=== PATIENT | female | born 1940 | race Caucasian/White ===

== ENCOUNTER 2018-02-13 20:23 | Emergency (ER) | payer OTHER, MEDICAID ==
[~2018-02-13] VITALS: Ht 165.1 cm; Wt 72.1 kg
[2018-02-13 20:25] VITALS: BP_SYST 142
[2018-02-13 21:03] LABS: BILIRUBIN,URINE NEGATIVE (NEGATIVE); BLOOD, URINE 2+ (NEGATIVE); CLARITY/URINE CLEAR (CLEAR); COLOR,URINE YELLOW (YELLOW); GLUCOSE,URINE NEGATIVE (NEGATIVE); KETONES,URINE NEGATIVE (NEGATIVE); LEUKOCYTE ESTERASE ,URINE 1+ (NEGATIVE); NITRITE, URINE NEGATIVE (NEGATIVE); PH,URINE 6.5 (5.0-8.0); PROTEIN URINE NEGATIVE (NEGATIVE); UROBILINOGEN,URINE 0.2 (0.2-1.0)
[2018-02-13 21:13] LABS: BASOPHILS % (AUTO) 0.3 % (0.0-2.0); EOSINOPHILS # (AUTO) 0.2 K/uL (0.0-0.4); EOSINOPHILS % (AUTO) 3.8 % (0.0-4.0); HEMATOCRIT 34.3 % (36-48); HEMOGLOBIN 12.1 g/dL (12.0-16.0); LYMPHOCYTES # (AUTO) 1.8 K/uL (1.0-5.5); LYMPHOCYTES % (AUTO) 32.1 % (20.5-51.5); MEAN CORPUSCULAR HEMOGLOBIN 33 pg (27-31); MEAN CORPUSCULAR HGB CONC 35 % (32-36); MEAN CORPUSCULAR VOLUME 93 fL (79.0-98.0); MONOCYTES # (AUTO) 0.6 K/uL (0.0-1.0); MONOCYTES % (AUTO) 11.4 % (1.7-9.3); NEUTROPHILS # (AUTO) 2.9 K/uL (1.8-7.7); NEUTROPHILS % (AUTO) 52.4 % (40.0-70.0); PLATELET COUNT (AUTO) 203 K/uL (130-430); RED BLOOD CELL COUNT(AUTO) 3.71 MIL/uL (4.2-6.2); RED CELL DISTRIBUTION WIDTH 12.4 % (9.0-15.0); WHITE BLOOD COUNT (AUTO) 5.5 K/uL (4.8-10.8)
[2018-02-13 21:15] LABS: BACTERIA,URINE FEW /HPF (None Seen); WBC,URINE 0-3 /HPF (0-3)
[2018-02-13 21:24] LABS: BARBITURATE, URINE NEGATIVE (NEG <=200); BENZODIAZEPINE, URINE NEGATIVE (NEG <=150); CANNABINOID, URINE NEGATIVE (NEG <=50); COCAINE, URINE NEGATIVE (NEG <=150); METHAMPHETAMINES SCREEN,URINE NEGATIVE (NEG <=500); OPIATE, URINE POSITIVE (NEG <=100); PHENCYCLIDINE SCREEN,URINE NEGATIVE (NEG <=25); UR TRICYCLIC ANTIDEPRESSANTS NEGATIVE (NEG <=300); URINE AMPHETAMINE NEGATIVE (NEG <=500); URINE METHADONE NEGATIVE (NEG <=200); URINE OXYCODONE SCREEN NEGATIVE (NEG <=100); URINE PROPOXYPHENE SCREEN NEGATIVE (NEG <=300)
[2018-02-13] MEDS ORDERED: NEU300 PO (21:29)
[2018-02-13] MEDS ORDERED: HYDR-4100 PO (21:29)
[2018-02-13 21:30] LABS: ANION GAP 8 (5-15); CALCIUM 9.2 mg/dL (8.4-11.0); CHLORIDE 103 mmol/L (98-107); GLUCOSE 106 mg/dL (70-99); POTASSIUM 3.8 mmol/L (3.5-5.1); SODIUM SERUM 137 mmol/L (136-145); UREA NITROGEN, BLOOD 20 mg/dL (8-21)
[2018-02-13 21:46] LABS: ALANINE AMINOTRANSFERASE 22 U/L (12-78); ALBUMIN 3.7 g/dL (3.4-4.8); ALCOHOL, BLOOD 3 mg/dL (<10); ASPARTATE AMINOTRANSFERASE 23 U/L (10-37); FREE T4 (FREE THYROXINE) 0.8 ng/dL (0.6-1.6); TOTAL BILIRUBIN 0.3 mg/dL (0.0-1.0)
[2018-02-13 22:04] LABS: PROTHROMBIN TIME 10.2 SECS (9.5-12.5)
[2018-02-13] MEDS ORDERED: ACETAMINOPHEN 325 MG TABLET PO ONE (23:00)
[2018-02-14] VITALS: BP_SYST 120
== END 2018-02-14 00:05 | disposition home or self-care (01) ==
LOC: SED 20:23
DX: R42 Dizziness and giddiness (principal); R03.0 Elevated blood-pressure reading, without diagnosis of hypertension; F41.9 Anxiety disorder, unspecified; M54.30 Sciatica, unspecified side; Z88.0 Allergy status to penicillin
CPT/HCPCS: 36415; 70450; 71045; 74018; 80053; 80307; 81000; 82140; 83605; 83880; 84439; 84484; 85025; 85610; 87040; 87086; 93005; 99285; G0482

== ENCOUNTER 2019-08-24 12:39 | Emergency (ER) | payer OTHER, MEDICAID ==
[~2019-08-24] VITALS: Ht 165.1 cm; Wt 74.8 kg
[~2019-08-24 12:39] MED LIST: HYDR-4100 PO; NEU300 PO
--- NOTE | 2019-08-24 13:10 | NUR ---
Patient to ER bed 3 to gown for evaluation. Side rails up. Assumed care.
--- NOTE | 2019-08-24 13:11 | NUR ---
Patient AAOx4 brought in by family c/o anxiety. Patient has allergy to penicillin. Patient denies any SOB or pain. Patient has thyroid disease. No signs or symptoms of acute distress noted.
--- NOTE | 2019-08-24 13:12 | NUR ---
BARRON Parker at bedside examining patient.
[2019-08-24 13:14] VITALS: BP_SYST 132
[2019-08-24] MEDS ORDERED: NACL 0.9% 1,000 ML IV ONE (13:15)
[2019-08-24] MEDS ORDERED: LORazepam 2 MG/ML VIAL IVP ONE (13:15)
[2019-08-24 13:37] LABS: BASOPHILS % (AUTO) 0.4 % (0.0-2.0); EOSINOPHILS # (AUTO) 0.1 K/uL (0.0-0.4); EOSINOPHILS % (AUTO) 1.3 % (0.0-4.0); HEMATOCRIT 36.2 % (36-48); HEMOGLOBIN 12.3 g/dL (12.0-16.0); LYMPHOCYTES # (AUTO) 1.4 K/uL (1.0-5.5); LYMPHOCYTES % (AUTO) 22.5 % (20.5-51.5); MEAN CORPUSCULAR HEMOGLOBIN 32 pg (27-31); MEAN CORPUSCULAR HGB CONC 34 % (32-36); MEAN CORPUSCULAR VOLUME 95 fL (79.0-98.0); MONOCYTES # (AUTO) 0.5 K/uL (0.0-1.0); NEUTROPHILS # (AUTO) 4.2 K/uL (1.8-7.7); NEUTROPHILS % (AUTO) 67.8 % (40.0-70.0); PLATELET COUNT (AUTO) 183 K/uL (130-430); RED BLOOD CELL COUNT(AUTO) 3.81 MIL/uL (4.2-6.2); RED CELL DISTRIBUTION WIDTH 13.5 % (9.0-15.0); WHITE BLOOD COUNT (AUTO) 6.2 K/uL (4.8-10.8)
[2019-08-24 13:52] LABS: ANION GAP 8 (5-15); CHLORIDE 106 mmol/L (98-107); CREATININE 0.73 mg/dL (0.55-1.30); GLUCOSE 194 mg/dL (70-99); POTASSIUM 3.6 mmol/L (3.5-5.1); SODIUM SERUM 140 mmol/L (136-145); UREA NITROGEN, BLOOD 18 mg/dL (8-21)
[2019-08-24 14:07] LABS: ALANINE AMINOTRANSFERASE 18 U/L (12-78); ALBUMIN 3.8 g/dL (3.4-4.8); ASPARTATE AMINOTRANSFERASE 20 U/L (10-37); FREE T4 (FREE THYROXINE) 0.9 ng/dl (0.8-1.5); THYROID STIMULATING HORMONE 2.55 uIu/mL (0.36-3.74); TOTAL BILIRUBIN 0.3 mg/dL (0.0-1.0)
--- NOTE | 2019-08-24 15:40 | NUR ---
Patient given written and verbal discharge instructions and verbalizes understanding. ER MD discussed with patient the results and treatment provided. Patient in stable condition. ID arm band removed. IV catheter removed intact and dressing applied, no active bleeding. Rx of Hydroxyzine Hydrochloride given. Patient educated on pain management and to follow up with PMD. Pain Scale 0/10. Opportunity for questions provided and answered. Medication side effect fact sheet provided.
[2019-08-24 15:44] VITALS: BP_SYST 130
== END 2019-08-24 15:43 | disposition home or self-care (01) ==
LOC: SED 12:39
DX: F41.9 Anxiety disorder, unspecified (principal); R73.9 Hyperglycemia, unspecified; R42 Dizziness and giddiness; Z88.0 Allergy status to penicillin; Z79.899 Other long term (current) drug therapy
CPT/HCPCS: 36415; 80053; 83036; 84439; 84443; 84484; 85025; 93005; 96361; 96374; 99284; J2060; J7030

== ENCOUNTER 2021-05-10 00:37 | Emergency (ER) | payer OTHER, MEDICAID ==
[~2021-05-10] VITALS: Ht 165.1 cm; Wt 68.0 kg
[~2021-05-10 00:37] MED LIST changes: +HYDR-3927 PO; -HYDR-4100 PO
[2021-05-10 00:56] VITALS: BP_SYST 102
[2021-05-10] MEDS ORDERED: DONE10TA44 PO (01:44)
[2021-05-10] MEDS ORDERED: SERT-436 PO (01:44)
[2021-05-10] MEDS ORDERED: BACL10TA PO (01:44)
[2021-05-10] MEDS ORDERED: SYN50 PO (01:44)
[2021-05-10] MEDS ORDERED: MEMA10TA PO (01:44)
[2021-05-10 02:08] LABS: ANION GAP 6 (5-15); CALCIUM 9.4 mg/dL (8.4-11.0); CHLORIDE 104 mmol/L (98-107); CREATININE 0.87 mg/dL (0.55-1.30); GLUCOSE 113 mg/dL (70-99); POTASSIUM 3.6 mmol/L (3.5-5.1); SODIUM SERUM 140 mmol/L (136-145); UREA NITROGEN, BLOOD 22 mg/dL (8-21)
[2021-05-10 02:09] LABS: BASOPHILS % (AUTO) 0.6 % (0.0-2.0); EOSINOPHILS # (AUTO) 0.1 K/uL (0.0-0.4); EOSINOPHILS % (AUTO) 1.9 % (0.0-4.0); HEMATOCRIT 34.2 % (36-48); HEMOGLOBIN 11.7 g/dL (12.0-16.0); LYMPHOCYTES # (AUTO) 1.6 K/uL (1.0-5.5); LYMPHOCYTES % (AUTO) 28.4 % (20.5-51.5); MEAN CORPUSCULAR HEMOGLOBIN 34 pg (27-31); MEAN CORPUSCULAR HGB CONC 34 % (32-36); MEAN CORPUSCULAR VOLUME 100 fL (79.0-98.0); MONOCYTES # (AUTO) 0.6 K/uL (0.0-1.0); NEUTROPHILS # (AUTO) 3.2 K/uL (1.8-7.7); NEUTROPHILS % (AUTO) 58.1 % (40.0-70.0); PLATELET COUNT (AUTO) 177 K/uL (130-430); RED BLOOD CELL COUNT(AUTO) 3.44 MIL/uL (4.2-6.2); RED CELL DISTRIBUTION WIDTH 13.8 % (9.0-15.0); WHITE BLOOD COUNT (AUTO) 5.5 K/uL (4.8-10.8)
[2021-05-10 02:11] LABS: BILIRUBIN,URINE NEGATIVE (NEGATIVE); CLARITY/URINE CLEAR (CLEAR); COLOR,URINE YELLOW (YELLOW); GLUCOSE,URINE NEGATIVE (NEGATIVE); KETONES,URINE NEGATIVE (NEGATIVE); LEUKOCYTE ESTERASE ,URINE TRACE (NEGATIVE); NITRITE, URINE POSITIVE (NEGATIVE); PROTEIN URINE NEGATIVE (NEGATIVE); UROBILINOGEN,URINE 0.2 (0.2-1.0)
[2021-05-10 02:14] LABS: ALANINE AMINOTRANSFERASE 21 U/L (12-78); ALBUMIN 3.7 g/dL (3.4-4.8); ASPARTATE AMINOTRANSFERASE 21 U/L (10-37); TOTAL BILIRUBIN 0.3 mg/dL (0.0-1.0)
[2021-05-10 02:16] LABS: BLOOD, URINE TRACE (NEGATIVE)
[2021-05-10 02:20] LABS: BACTERIA,URINE MODERATE /HPF (None Seen)
[2021-05-10] MEDS ORDERED: cefTRIAXone 1 GM IVPB PREMIX 50 ML IV ONE (02:45)
[2021-05-10] MEDS ORDERED: NITR-85 PO ×2 (05:46→08:32)
[2021-05-10 08:33] VITALS: BP_SYST 102
== END 2021-05-10 08:30 | disposition home or self-care (01) ==
LOC: SED 00:37
DX: N39.0 Urinary tract infection, site not specified (principal); F41.9 Anxiety disorder, unspecified; Z88.0 Allergy status to penicillin; Z79.899 Other long term (current) drug therapy
CPT/HCPCS: 36415; 71045; 80053; 81000; 83605; 85025; 87040; 87086; 93005; 96365; 99285; J0696

== ENCOUNTER 2021-11-24 02:37 | Emergency (ER) | payer OTHER, MEDICAID, SELFPAY ==
[~2021-11-24] VITALS: Ht 162.6 cm; Wt 68.0 kg
[~2021-11-24 02:37] MED LIST changes: +BACL10TA PO; +DONE10TA44 PO; +MEMA10TA PO; -NEU300 PO; +NITR-85 PO; +SERT-436 PO; +SYN50 PO
[2021-11-24 02:40] VITALS: BP_SYST 119
[2021-11-24] MEDS ORDERED: PROCHLORPERAZINE EDISYLATE 10 MG/2 ML VIAL IVP ONE (02:45)
[2021-11-24] MEDS: NS 500 ML IV SCH ×2 (03:36→03:41)
[2021-11-24 04:53] LABS: INR 1.1 (0.8-1.2)
[2021-11-24 05:07] LABS: BASOPHILS % (AUTO) 0.1 % (0.0-2.0); EOSINOPHILS # (AUTO) 0.1 K/uL (0.0-0.4); EOSINOPHILS % (AUTO) 1.1 % (0.0-4.0); HEMATOCRIT 36.9 % (36-48); HEMOGLOBIN 12.4 g/dL (12.0-16.0); LYMPHOCYTES # (AUTO) 0.4 K/uL (1.0-5.5); LYMPHOCYTES % (AUTO) 4.5 % (20.5-51.5); MEAN CORPUSCULAR HEMOGLOBIN 31 pg (27-31); MEAN CORPUSCULAR HGB CONC 34 % (32-36); MEAN CORPUSCULAR VOLUME 93 fL (79.0-98.0); MONOCYTES # (AUTO) 0.3 K/uL (0.0-1.0); MONOCYTES % (AUTO) 3.7 % (1.7-9.3); NEUTROPHILS # (AUTO) 8.4 K/uL (1.8-7.7); NEUTROPHILS % (AUTO) 90.6 % (40.0-70.0); PLATELET COUNT (AUTO) 231 K/uL (130-430); RED BLOOD CELL COUNT(AUTO) 3.96 MIL/uL (4.2-6.2); RED CELL DISTRIBUTION WIDTH 13.2 % (9.0-15.0); WHITE BLOOD COUNT (AUTO) 9.3 K/uL (4.8-10.8)
[2021-11-24 05:19] LABS: ANION GAP 14 (5-15); CALCIUM 8.2 mg/dL (8.4-11.0); CHLORIDE 104 mmol/L (98-107); CREATININE 0.72 mg/dL (0.55-1.30); GLUCOSE 141 mg/dL (70-99); POTASSIUM 3.4 mmol/L (3.5-5.1); SODIUM SERUM 143 mmol/L (136-145); UREA NITROGEN, BLOOD 30 mg/dL (8-21)
[2021-11-24 05:25] LABS: ALANINE AMINOTRANSFERASE 26 U/L (12-78); ALBUMIN 3.8 g/dL (3.4-4.8); ASPARTATE AMINOTRANSFERASE 34 U/L (10-37); TOTAL BILIRUBIN 0.5 mg/dL (0.0-1.0)
[2021-11-24] MEDS ORDERED: NACL 0.9% 1,000 ML IV ONE (05:30)
[2021-11-24] MEDS ORDERED: LOPERAMIDE HCL 2 MG CAPSULE PO ONE (05:45)
[2021-11-24] MEDS ORDERED: PANTOPRAZOLE SODIUM 40 MG/VIAL (PROTONIX) IVP ONE (05:45)
[2021-11-24 05:58] LABS: BILIRUBIN,URINE NEGATIVE (NEGATIVE); BLOOD, URINE 2+ (NEGATIVE); CLARITY/URINE CLEAR (CLEAR); COLOR,URINE YELLOW (YELLOW); GLUCOSE,URINE NEGATIVE (NEGATIVE); KETONES,URINE NEGATIVE (NEGATIVE); LEUKOCYTE ESTERASE ,URINE 1+ (NEGATIVE); NITRITE, URINE NEGATIVE (NEGATIVE); PH,URINE 6.5 (5.0-8.0); PROTEIN URINE 1+ (NEGATIVE); UROBILINOGEN,URINE 0.2 (0.2-1.0)
[2021-11-24] MEDS ORDERED: LOPE2CAP PO (06:15)
[2021-11-24] MEDS ORDERED: PROC5TAB12 PO (06:15)
[2021-11-24] MEDS ORDERED: VANC125C10 PO (06:15)
[2021-11-24 06:18] LABS: BACTERIA,URINE None Seen /HPF (None Seen)
[2021-11-24 06:19] LABS: MUCUS,URINE 2+ /LPF (None Seen); TRICHOMONAS,URINE None Seen /HPF (None Seen); YEAST,URINE None Seen /HPF (None Seen)
[2021-11-24 10:25] VITALS: BP_SYST 103
== END 2021-11-24 10:23 ==
LOC: SED 02:37
DX: E86.0 Dehydration (principal); R19.7 Diarrhea, unspecified; F41.9 Anxiety disorder, unspecified; Z88.0 Allergy status to penicillin; Z79.899 Other long term (current) drug therapy; Z20.822 Contact with and (suspected) exposure to COVID-19
CPT/HCPCS: 36415; 71045; 80053; 81000; 82962; 85025; 85610; 85730; 86886; 86900; 86901; 87426; 96361; 96374; 99285; C9113; J0780; J7030

== ENCOUNTER 2022-02-26 21:29 | Emergency (ER) | payer OTHER, MEDICAID ==
[~2022-02-26] VITALS: Ht 162.6 cm; Wt 61.2 kg
[~2022-02-26 21:29] MED LIST changes: +LOPE2CAP PO; +PROC5TAB12 PO; +VANC125C10 PO
[2022-02-26 22:16] VITALS: BP_SYST 134
--- NOTE | 2022-02-26 22:16 | NUR ---
Patient to [facility] to gown for evaluation. Side rails up.
--- NOTE | 2022-02-26 22:36 | NUR ---
First contact with pt. Pt has cc of back pain. Pt states " I ran out of my [place] at home, I have been out of them for the past 2 months". Pt endorses [place] for her chronic back pain. Pt is AxO x 4, GCS 15, speech is clear. VSS, will continue to monitor.
--- NOTE | 2022-02-26 22:58 | NUR ---
Provider at bedside.
[2022-02-26] MEDS ORDERED: HYDROcodone/ACETAMIN 7.5-325 MG TAB PO ONE (23:15)
--- NOTE | 2022-02-27 00:17 | NUR ---
Pt provided with gurney per request, to alleviate joint discomfort.
[2022-02-27 00:25] LABS: BASOPHILS % (AUTO) 0.3 % (0.0-2.0); EOSINOPHILS # (AUTO) 0.1 K/uL (0.0-0.4); EOSINOPHILS % (AUTO) 1.1 % (0.0-4.0); HEMATOCRIT 34.4 % (36-48); HEMOGLOBIN 11.9 g/dL (12.0-16.0); LYMPHOCYTES # (AUTO) 1.6 K/uL (1.0-5.5); LYMPHOCYTES % (AUTO) 27.3 % (20.5-51.5); MEAN CORPUSCULAR HEMOGLOBIN 33 pg (27-31); MEAN CORPUSCULAR HGB CONC 35 % (32-36); MEAN CORPUSCULAR VOLUME 95 fL (79.0-98.0); MONOCYTES # (AUTO) 0.7 K/uL (0.0-1.0); NEUTROPHILS # (AUTO) 3.6 K/uL (1.8-7.7); NEUTROPHILS % (AUTO) 60.3 % (40.0-70.0); PLATELET COUNT (AUTO) 158 K/uL (130-430); RED BLOOD CELL COUNT(AUTO) 3.62 MIL/uL (4.2-6.2); RED CELL DISTRIBUTION WIDTH 14.1 % (9.0-15.0); WHITE BLOOD COUNT (AUTO) 5.9 K/uL (4.8-10.8)
[2022-02-27 00:27] LABS: ANION GAP 8 (5-15); CALCIUM 8.5 mg/dL (8.4-11.0); CHLORIDE 103 mmol/L (98-107); CREATININE 0.79 mg/dL (0.55-1.30); GLUCOSE 118 mg/dL (70-99); POTASSIUM 3.9 mmol/L (3.5-5.1); SODIUM SERUM 137 mmol/L (136-145); UREA NITROGEN, BLOOD 25 mg/dL (8-21)
[2022-02-27 00:34] LABS: ALANINE AMINOTRANSFERASE 23 U/L (12-78); ALBUMIN 3.6 g/dL (3.4-4.8); ASPARTATE AMINOTRANSFERASE 29 U/L (10-37); TOTAL BILIRUBIN 0.4 mg/dL (0.0-1.0)
--- NOTE | 2022-02-27 00:51 | NUR ---
Pt laying quietly in [place].
[2022-02-27] MEDS ORDERED: HYDR-3921 PO ×2 (01:16→02:28)
[2022-02-27 02:48] VITALS: BP_SYST 123
--- NOTE | 2022-02-27 02:48 | NUR ---
Patient given written and verbal discharge instructions and verbalizes understanding. ER MD discussed with patient the results and treatment provided. Patient in stable condition. Rx of [place] sent to preferred pharmacy by ER MD. Patient educated on pain management and to follow up with PMD. Pain Scale 0/10. Opportunity for questions provided and answered.
== END 2022-02-27 02:48 | disposition home or self-care (01) ==
LOC: SED 21:29
DX: M54.50 Low back pain, unspecified (principal); G89.29 Other chronic pain; M79.642 Pain in left hand; M79.641 Pain in right hand; R03.0 Elevated blood-pressure reading, without diagnosis of hypertension; Z88.0 Allergy status to penicillin; Z79.899 Other long term (current) drug therapy
CPT/HCPCS: 36415; 80053; 85025; 99283